=== PATIENT | male | born 1990 | race African-American/Black ===

== ENCOUNTER 2018-11-16 08:41 | Emergency (ER) | payer SELFPAY ==
[~2018-11-16] VITALS: Ht 175.3 cm; Wt 65.8 kg
[2018-11-16 09:27] VITALS: BP 142/76
--- NOTE | 2018-11-16 09:52 | PHYS DOC ---
Past Medical History Past Medical History: No Pertinent History Past Surgical History: No Surgical History Alcohol Use: Occasionally Drug Use: None Adult General Chief Complaint Chief Complaint: OTHER COMPLAINTS [facility] HPI Patient is a 27 year old male presents to the ED complaining of left-sided chest pain �2 days. Patient states that it is intermittent and only last for a few seconds. States it is worse with range of motion. Patient states that he worked out yesterday and did chest exercises. Describes the pain as uncomfortable. Rates the pain as 6 out of 10. Patient currently not having any symptoms. Denies shortness of breath, nausea/vomiting, abdominal pain, weakness, dizziness, syncope, back pain, fever or headache. Review of Systems Review of Systems Constitutional: Denies fever or chills [] Eyes: Denies change in visual acuity, redness, or eye pain [] HENT: Denies nasal congestion or sore throat [] Respiratory: Denies cough or shortness of breath [] Cardiovascular: No additional information not addressed in HPI [] GI: Denies abdominal pain, nausea, vomiting, bloody stools or diarrhea [] : Denies dysuria or hematuria [] Musculoskeletal: Denies back pain or joint pain [] Integument: Denies rash or skin lesions [] Neurologic: Denies headache, focal weakness or sensory changes [] All other systems were reviewed and found to be within normal limits, except as documented in this note. Allergies Allergies Allergies Coded Allergies Type Severity Reaction Last Updated Verified No Known Drug Allergies 11/16/18 No Physical Exam Physical Exam Constitutional: Well developed, well nourished, no acute distress, non-toxic appearance. [] HENT: Normocephalic, atraumatic Neck: Normal range of motion, no tenderness, supple, no stridor. [] Cardiovascular:Heart rate regular rhythm, no murmur [] Lungs & Thorax: Bilateral breath sounds clear to auscultation. Mild left chest wall tenderness. Pain with lateral ROM. no overlying skin changes.[] Abdomen: Bowel sounds normal, soft, no tenderness, no masses, no pulsatile masses. [] Skin: Warm, dry, no erythema, no rash. [] Back: No tenderness, no CVA tenderness. [] Extremities: No tenderness, no cyanosis, no clubbing, ROM intact, no edema. [] Neurologic: Alert and oriented X 3, normal motor function, normal sensory function, no focal deficits noted. [] Psychologic: Affect normal, judgement normal, mood normal. [] Current Patient Data Vital Signs Vital Signs Date Time Temp Pulse Resp B/P (MAP) Pulse Ox O2 Delivery O2 Flow Rate FiO2 11/16/18 09:27 98.5 70 18 142/76 (98) 99 Room Air 98.5 EKG EKG []EKG shows NSR at 68 BPM. No STEMI. Radiology/Procedures Radiology/Procedures []PROCEDURE: CHEST AP ONLY EXAM: CHEST 1 VIEW History: Chest pain COMPARISON: None available. TECHNIQUE: Single portable radiograph of the chest FINDINGS: The cardiac silhouette is unremarkable. The lungs are clear bilaterally. The costophrenic sulci are clear and well demarcated. IMPRESSION: No radiographic evidence of an acute cardiopulmonary process. Course & Med Decision Making Course & Med Decision Making Pertinent Labs and Imaging studies reviewed. (See chart for details) []Discussed EKG and imaging findings with patient. Patient's has pain with range of motion and palpation. Pain has no symptoms in the ED. Discussed symptomatic treatment and follow up outpatient. Provided contact information/education. Discussed reasons to return to the ED. Patient understands and agrees with plan. Dragon Disclaimer Dragon Disclaimer This electronic medical record was generated, in whole or in part, using a voice recognition dictation system. Departure Departure Impression: Primary Impression: Chest wall pain Disposition: 01 HOME, SELF-CARE Condition: IMPROVED Referrals: AVEL HUERTA MD (PCP) Patient Instructions: Chest Wall Pain ERYN NOWAK Nov 16, 2018 09:52
--- NOTE | 2018-11-16 10:02 | RAD ---
EXAM: CHEST 1 VIEW History: Chest pain COMPARISON: None available. TECHNIQUE: Single portable radiograph of the chest FINDINGS: The cardiac silhouette is unremarkable. The lungs are clear bilaterally. The costophrenic sulci are clear and well demarcated. IMPRESSION: No radiographic evidence of an acute cardiopulmonary process. Electronically signed by: Irineo Welch MD (11/16/2018 9:59 AM) [id number]
--- NOTE | 2018-11-16 10:12 | EKG ---
[facility] [address] [place] [address] Test Date: 2018-11-16 Test Time: 09:44:07 Pat Name: REBECCA SUTTON Department: Room: Gender: [employer] Operator: : 1990 Requested By: ERYN NOWAK Order Number: [id number] Reading MD: Measurements Intervals [place] Rate: 67 P: 82 [place]: 142 QRS: 73 QRSD: 104 T: 61 QT: 352 QTc: 374 Interpretive Statements SINUS RHYTHM NON SPECIFIC ST-T ABNORMALITY (ELEVATION) OTHERWISE NORMAL ECG No previous ECG available for comparison
== END 2018-11-16 10:20 | disposition home or self-care (01) ==
LOC: ER 08:41
DX: R07.89 Other chest pain (principal)
CPT/HCPCS: 71045; 93005; 99284